=== PATIENT | male | born 2005 | race Caucasian/White ===

== ENCOUNTER 2024-04-26 16:26 | Emergency (ER) | payer BC ==
[~2024-04-26] VITALS: Ht 177.8 cm; Wt 68.2 kg
[2024-04-26 16:31] VITALS: TEMP 98.3
[2024-04-26] MEDS ORDERED: NORCO 325 MG-51 TAB PO (18:44)
[2024-04-26 19:06] VITALS: BP 123/78; PULSE 89
== END 2024-04-26 19:06 | disposition home or self-care (01) ==
LOC: COL.ER 16:26
DX: S52.501A Unspecified fracture of the lower end of right radius, initial encounter for closed fracture (principal); S52.611A Displaced fracture of right ulna styloid process, initial encounter for closed fracture; V17.4XXA Pedal cycle driver injured in collision with fixed or stationary object in traffic accident, initial encounter; Y93.55 Activity, bike riding; Y92.828 Other wilderness area as the place of occurrence of the external cause